=== PATIENT | male | born 2000 | race African-American/Black ===

== ENCOUNTER → 2019-12-28 | Outpatient (CLI) | payer OTHER | LOC: CAT 14:08 | DX: R07.89 Other chest pain (principal); R06.02 Shortness of breath; R00.0 Tachycardia, unspecified ==

== ENCOUNTER 2020-02-26 06:44 | Emergency (ER) | payer OTHER ==
[~2020-02-26] VITALS: Ht 175.3 cm; Wt 86.2 kg
[2020-02-26 08:05] VITALS: BP 127/82
== END 2020-02-26 08:05 | disposition home or self-care (01) ==
LOC: ER 06:44
DX: R06.00 Dyspnea, unspecified (principal); J45.909 Unspecified asthma, uncomplicated

== ENCOUNTER 2021-05-19 19:43 | Emergency (ER) | payer OTHER ==
[~2021-05-19] VITALS: Ht 177.8 cm; Wt 77.1 kg
[2021-05-19 20:54] VITALS: BP 149/83
[2021-05-19 22:05] LABS: HEMATOCRIT 43.7 % (42.0-52.0); HEMOGLOBIN 14.9 gm/dL (14.0-18.0); MCH 26.9 pg (26.0-34.0); MCHC 34.2 g/dL (28.0-37.0); MCV 78.8 fL (80.0-100.0); RBC 5.55 mil/uL (4.50-6.00); RDW 13.7 % (10.5-14.5); WBC 7.2 thou/uL (4.0-11.0)
[2021-05-19 22:11] LABS: CALCIUM 9.1 mg/dL (8.5-10.1); CREATININE 1.2 mg/dL (0.7-1.3); POTASSIUM 3.5 mmol/L (3.5-5.1)
[2021-05-19] MEDS ORDERED: VISTARIL 25 MG25 M1 PO (23:53)
--- NOTE | 2021-05-20 07:21 | EKG ---
[place] [address] [facility] [email or web address] [address] ELECTROCARDIOGRAM REPORT Name: DOREEN SIMON BRE [facility] [id number] Admission: 05/19/21 Attend Phys: Discharge: 05/20/21 Date of : 89 Report #: [id number] [facility] ED Test Date: 2021-05-19 Test Time: 21:49:48 Pat Name: DOREEN SIMON Department: Room: Gender: Purchase Order Checker: YOLISSAMUEL : 2000 Requested By: Mitchell Szymanski Order Number: [id number] MD: Ruben Lake Measurements Intervals [place] Rate: 62 P: 49 OR: 167 QRS: 67 QRSD: 92 T: 46 QT: 374 QTc: 380 Interpretive Statements Sinus rhythm Probable left atrial enlargement ST elev, probable normal early repol pattern No previous ECG available for comparison Electronically Signed On 05-20-2021 7:21:33 CDT by Ruben Lake [email or web address] <ELECTRONICALLY SIGNED> By: Ruben Lake MD, [facility] 05/20/21 0721 2149 [id number] Ruben Lake MD, FACC /EPI
== END 2021-05-20 00:01 | disposition home or self-care (01) ==
LOC: ER 19:43
PROVIDERS: Emergency Medicine
DX: R06.09 Other forms of dyspnea (principal); F41.9 Anxiety disorder, unspecified; R00.2 Palpitations